=== PATIENT | female | born 1985 | race Caucasian/White ===

== ENCOUNTER 2018-06-13 15:14 | Emergency (ER) | payer SELFPAY ==
[~2018-06-13] VITALS: Ht 157.5 cm; Wt 59.9 kg
[2018-06-13 15:31] VITALS: BP 131/87
--- NOTE | 2018-06-13 15:36 | NUR ---
patient to lobby with steady gait. awaiting available room. nad.
--- NOTE | 2018-06-13 15:50 | NUR ---
PATIENT AMBULATED TO ER BED 5.
--- NOTE | 2018-06-13 16:00 | NUR ---
PATIENT PRESENTS TO ED WITH C/O PRODUCTIVE COUGH . PT STATES SHE HAS BEEN COUGHING FOR 2 MONTHS AND HAD GREEN PHLEGM FOR THE PAST 2 WEEKS. PATIENT REPORTS OF FEELING FATIGUED AND HAVING GENERALIZED PAIN . DENIES N/V/D; SKIN IS PINK/WARM/DRY; AAOX4 WITH EVEN AND STEADY GAIT; LUNGS CLEAR BL; HR EVEN AND REGULAR; PT DENIES ANY FEVER, CP, SOB, AT THIS TIME; PATIENT STATES PAIN OF 8/10 AT THIS TIME; VSS; PATIENT POSITIONED FOR COMFORT; HOB ELEVATED; BEDRAILS UP X2; BED DOWN. ER MD MADE AWARE OF PT STATUS.
[2018-06-13] MEDS ORDERED: ALBUTEROL 0.083% 2.5 MG/3 ML NEBU INH ONE (17:20)
[2018-06-13] MEDS ORDERED: IPRATROPIUM 0.02% 0.5 MG/2.5 ML NEBU INH ONE (17:20)
[2018-06-13] MEDS ORDERED: predniSONE 20 MG TAB PO ONE (17:20)
[2018-06-13 18:43] VITALS: BP 124/96
--- NOTE | 2018-06-13 18:43 | NUR ---
PATIENT DISCHARGED WITHOUT PAPERWORK. PATIENT LEFT DISCHARGE PAPERS AND PRESCRIPTIONS. CALLED PATIENT'S NUMBER. PT'S FAMILY MEMBER ANSWERED THE CALL. FAMILY MEMBER INTRUCTED TO HAVE THE PATIENT CALL BACK ER.
--- NOTE | 2018-06-13 18:43 | NUR ---
Note rizwanone in EDM - 06/13/18 at 1847 by AUSTIN Patient discharged with v/s stable. Written and verbal after care instructions given and explained. Patient alert, oriented and verbalized understanding of instructions. Ambulatory with steady gait. All questions addressed prior to discharge. ID band removed. Patient advised to follow up with PMD. Rx of GIO TORRES given. Patient educated on indication of medication including possible reaction and side effects. Opportunity to ask questions provided and answered.
== END 2018-06-13 18:43 | disposition home or self-care (01) ==
LOC: MED 15:14
DX: J40 Bronchitis, not specified as acute or chronic (principal); J98.01 Acute bronchospasm; F17.210 Nicotine dependence, cigarettes, uncomplicated
CPT/HCPCS: 71045; 94640; 99283; J7512; J7613; J7644

== ENCOUNTER 2018-08-23 17:22 | Inpatient (IN) | payer MEDICAID ==
[~2018-08-23] VITALS: Ht 157.5 cm; Wt 63.5 kg
[2018-08-23 17:32] VITALS: BP 148/103
--- NOTE | 2018-08-23 18:01 | NUR ---
C/O SOB AND SWELLING/REDNESS TO BILAT UPPER/LOWER EXTREMITIES X 1 MONTH,; SKIN IS WARM/DRY, AAOX4 WITH UNSTEADY GAIT; LUNGS CLEAR BL, LABORED BREATHING, TACHYPNEA NOTED AT 24 RESP. PER MINUTE; PT PLACED ON 15L NRB MASK, O2 SAT AT 95%, ELEVATED HOB. TACHYCARDIA AT 113, ERMD AWARE; PT DENIES ANY FEVER AT THIS TIME. PATIENT POSITIONED FOR COMFORT; HOB ELEVATED; BEDRAILS UP X2; BED DOWN. ER MD MADE AWARE OF PT STATUS.
--- NOTE | 2018-08-23 18:01 | NUR ---
Patient ambulated to bed 6 with family. RN evaluating patient at bedside.
--- NOTE | 2018-08-23 18:14 | NUR ---
Dr. Key evaluating patient at bedside.
--- NOTE | 2018-08-23 18:27 | NUR ---
UNABLE TO OBTAIN IV LINE, CHARGE NURSE KARELY WILL ATTEMPT
--- NOTE | 2018-08-23 19:05 | NUR ---
REPORT GIVEN TO ENRIQUE ARZATE
[2018-08-23 19:12] LABS: BASOPHILS # (AUTO) 0.1 K/uL (0.00-0.22); EOSINOPHILS # (AUTO) 0.1 K/uL (0-0.4); EOSINOPHILS % (AUTO) 0.9 % (0.0-4.0); HEMATOCRIT 45.2 % (36-48); HEMOGLOBIN 14.6 g/dL (12.0-16.0); LYMPHOCYTES % (AUTO) 25.9 % (20.5-51.1); MEAN CORPUSCULAR HEMOGLOBIN 26 pg (27-31); MEAN CORPUSCULAR HGB CONC 32 g/dL (33-37); MEAN CORPUSCULAR VOLUME 78.9 fL (80-94); MONOCYTES # (AUTO) 0.8 K/uL (0.8-1.0); MONOCYTES % (AUTO) 6.8 % (1.7-9.3); NEUTROPHILS # (AUTO) 7.7 K/uL (1.8-7.7); NEUTROPHILS % (AUTO) 65.4 % (42.2-75.2); PLATELET COUNT (AUTO) 380 K/uL (140-450); RED BLOOD CELL COUNT(AUTO) 5.73 MIL/uL (4.20-5.40); RED CELL DISTRIBUTION WIDTH 14.3 % (11.6-13.7); WHITE BLOOD COUNT (AUTO) 11.7 K/uL (4.8-10.8)
--- NOTE | 2018-08-23 19:30 | NUR ---
3 ATTEMPTS FOR IV START, L THUMB 22G SUCCESSFULL, FLUSHED WELL W/O RESISTANCE, NO REDNESS OR SWELLING TO SIGHT; CLEAR TRANSPARENTS DRESSING APPLIED PT TOLERATED WELL, PT STATES 0/10 PAIN TO SIGHT.
[2018-08-23 19:35] LABS: ANION GAP 15.1 (8-16); CARBON DIOXIDE 23.3 mmol/L (21-32); POTASSIUM 4.4 mmol/L (3.5-5.1)
[2018-08-23 19:38] LABS: PROTHROMBIN TIME 10.7 secs (10.8-13.4)
[2018-08-23 19:40] LABS: ALBUMIN 3.7 g/dL (3.4-5.0); TOTAL BILIRUBIN 1.2 mg/dL (0.0-1.0)
[2018-08-23] MEDS ORDERED: FUROSEMIDE 40 MG/4 ML VIAL IVP ONE (20:05)
[2018-08-23 20:08] LABS: BARBITURATE, URINE NEG. ng/ml (NEG <=200); BENZODIAZEPINE, URINE NEG. ng/mL (NEG <=200); CANNABINOID, URINE NEG. ng/mL (NEG <=50); COCAINE, URINE NEG. ng/mL (NEG <=300); OPIATE, URINE POS. ng/mL (NEG <=2000); PHENCYCLIDINE SCREEN,URINE NEG. ng/mL (NEG <=25)
[2018-08-23] MEDS ORDERED: DOCUSATE SODIUM 100 MG GELCAP PO PRN (20:15)
[2018-08-23] MEDS ORDERED: ACETAMINOPHEN 325 MG TAB PO PRN (20:15)
[2018-08-23] MEDS ORDERED: ONDANSETRON 4 MG/2 ML VIAL IM/IVP PRN (20:15)
[2018-08-23 20:33] LABS: APPEARANCE,URINE CLEAR (CLEAR); BILIRUBIN,URINE NEGATIVE (NEGATIVE); BLOOD, URINE NEGATIVE (NEGATIVE); COLOR,URINE YELLOW (YELLOW); LEUKOCYTE ESTERASE ,URINE TRACE (NEGATIVE); NITRITE, URINE NEGATIVE (NEGATIVE); UGLUCOSE NEGATIVE (NEGATIVE)
[2018-08-23 20:34] LABS: RBC,URINE 0 /HPF (0-5); WBC,URINE 0-5 /HPF (0-5)
[2018-08-23 20:58] LABS: CHOL/HDL RATIO 3.2 (1-4.5); FREE T4 (FREE THYROXINE) 1.09 ng/dL (0.76-1.46); MAGNESIUM 1.9 mg/dL (1.8-2.4); PHOSPHORUS 4.6 mg/dL (2.5-4.9); THYROID STIMULATING HORMONE 1.21 uIU/mL (0.34-3.74)
[2018-08-23 21:00] VITALS: BP 147/112
--- NOTE | 2018-08-23 21:00 | NUR ---
RECEIVED BEDSIDE REPORT FROM ENRIQUE LUCERO RN. PT IS AMBULATORY. AAO X4. ON NON REBREATHER MASK AT 15L. RESPIRATIONS ARE LABORED. HAS FRANCISCA EDEMA. SENSATION INTACT CAP REFILL <2. SKIN INTACT. IV ON LEFT THUMB 24G. VS: 147/112 HR 111 99% ON 15L RR 22. PLAN OF CARE DISCUSSED WITH PT AND FAMILY. DR TO SEE PT. MRSA SWAB OBTAINED. CALL LIGHT WITHIN REACH.
--- NOTE | 2018-08-23 21:00 | NUR ---
Patient will be admitted to care of [facility]. Admited to TELE. Will go to room 119B. Belongings list completed. Report to JAZMYNE ARZATE.
--- NOTE | 2018-08-23 21:20 | NUR ---
DR BRUSH IN ROOM WITH PT. PT IN STABLE CONDITION. CALL LIGHT WITHIN REACH.
[2018-08-23] MEDS: NACL 0.9% 1,000 ML IV SCH (21:39)
[2018-08-23] MEDS ORDERED: ALUMINUM HYD/MAG/SIMETHICONE 30 ML UDC PO PRN (22:05)
[2018-08-23] MEDS: HYDROcodone/APAP 7.5/325 MG 1 TAB PO PRN (22:34)
[2018-08-23] MEDS ORDERED: traZODone 50 MG TAB PO SCH (23:00)
--- NOTE | 2018-08-23 23:33 | NUR ---
RT IN TO SEE PT. PT KEEPS TAKING OFF NON REBREATHER MASK. O2 SAT 87% ON RA. RT EDUCATED PT ON IMPORTANCE OF KEEPING O2 SAT UP. PT VERBALIZED UNDERSTANDING. CALL LIGHT WITHIN REACH. WILL CONTINUE TO MONITOR.
--- NOTE | 2018-08-23 23:35 | NUR ---
ADVISED PATIENT THAT DUE TO CURRENT PHYSICAL CONDITION THAT HER BODY IS NOT RECEIVING ENOUGH OXYGEN AND THAT THE OXYGEN DEVICES ARE NOT FIT TO PATIENTS COMFORT THAT THEY ARE FIT TO PATIENTS NEED. SPO2 ON NONREBREATHER MAINTAINS 91-92%. ADVISED PATIENT THAT FLUIDS DRAW OUT THAT HER OXYGEN WILL IMPROVE AND A DIFFERENT DEVICE CAN BE USED. PT UNDERSTANDS AND SAID SHE WILL COMPLY.
[2018-08-24] VITALS: BP 127/96
--- NOTE | 2018-08-24 00:44 | NUR ---
PT SLEEPING COMFORTABLY IN BED. NO S/S OF DISTRESS. RESPIRATIONS ARE EQUAL AND UNLABORED. PT REMAINS WITH NON REBREATHER MASK ON. CALL LIGHT WITHIN REACH.
--- NOTE | 2018-08-24 02:04 | NUR ---
ASSESSED PATIENT WHO WAS ASLEEP BUT WOKE. STATED THAT HER BREATHING FEELS BETTER THAT SHE IS NOT WORKING HARD. RESPIRATORY RATE 22 BUT APPEARED LESS LABORED TO WHEN SHE CAME IN TO ER. PLACED PATIENT ONTO 10 L/M OXYMIZER, SPO2 MAINTAINED AT 92%. ADVISED RN AND WILL CONTINUE TO MONITOR.
--- NOTE | 2018-08-24 03:50 | NUR ---
VITAL SIGNS ARE WITHIN NORMAL LIMITS. ALL NEEDS MET AT THIS TIME. CALL LIGHT WITHIN REACH. WILL CONTINUE TO MONITOR.
[2018-08-24 04:00] VITALS: BP 131/95
--- NOTE | 2018-08-24 04:03 | NUR ---
SPOKE WITH PTS AUNT ALEC. WERE WORRIED. UPDATED HER ABOUT HER CONDITION. SHE IS STABLE. ON OXYGEN NO MORE SOB. INFORMED CANNOT GIVE TOO MUCH INFO THROUGH PHONE. SHE WILL COME IN TO SEE PT. IN MORNING.
[2018-08-24] MEDS: HYDROcodone/APAP 7.5/325 MG 1 TAB PO PRN ×3 (05:39→15:15)
[2018-08-24] MEDS: LORazepam 2 MG/ML VIAL IVP PRN ×3 (06:45→20:54)
[2018-08-24] MEDS: ALBUTEROL SULFATE/IPRATROPIU 3 ML SOL IH SCH ×3 (07:10→21:02)
--- NOTE | 2018-08-24 07:29 | NUR ---
GAVE BEDSIDE REPORT TO GEOVANY RN. PT ENDORSED IN STABLE CONDITION.
--- NOTE | 2018-08-24 07:30 | NUR ---
RECEIVED BEDSIDE REPORT FROM TAKER OFF BRAKER MACHINE HUEY SAMANO AT BEDSIDE FOR CONTINUITY OF CARE. PT IS AMBULATORY. AAO X4. ON OXYMIZER 5L O2. RESPIRATIONS EVEN AND UNLABORED, PT HAS BLE EDEMA. SKIN INTACT. IV ON LEFT THUMB 24G, INFUSING IVF WELL. PLAN OF CARE DISCUSSED WITH PT, SHE VERBALIZED UNDERSTANDING. UPDATED BOARD. SAFETY PRECAUTIONS IN PLACE, CALL LIGHT WIHTIN REACH, WILL CONTINUE TO MONITOR PATIENT.
--- NOTE | 2018-08-24 07:45 | NUR ---
RECEIVED CALL FROM LAURYN SECURITY ESCORT ABOUT CT ANGIOGRAM. PATIENT DOES NOT HAVE ACCESS FOR CT ANGIO. IV WILL BE ATTEMPTED, INFORM LAURYN THAT SHE WILL BE UDPATED. WILL CONTINUE TO MONITOR PATIENT.
[2018-08-24 07:47] LABS: BASOPHILS # (AUTO) 0.1 K/uL (0.00-0.22); BASOPHILS % (AUTO) 0.9 % (0.0-2.0); EOSINOPHILS # (AUTO) 0.1 K/uL (0-0.4); EOSINOPHILS % (AUTO) 1.1 % (0.0-4.0); HEMATOCRIT 41.8 % (36-48); HEMOGLOBIN 13.4 g/dL (12.0-16.0); LYMPHOCYTES # (AUTO) 3.1 K/uL (2.5-16.5); LYMPHOCYTES % (AUTO) 27.6 % (20.5-51.1); MEAN CORPUSCULAR HEMOGLOBIN 25 pg (27-31); MEAN CORPUSCULAR HGB CONC 32 g/dL (33-37); MEAN CORPUSCULAR VOLUME 79.1 fL (80-94); MONOCYTES # (AUTO) 0.6 K/uL (0.8-1.0); MONOCYTES % (AUTO) 5.7 % (1.7-9.3); NEUTROPHILS # (AUTO) 7.2 K/uL (1.8-7.7); NEUTROPHILS % (AUTO) 64.7 % (42.2-75.2); PLATELET COUNT (AUTO) 336 K/uL (140-450); RED BLOOD CELL COUNT(AUTO) 5.28 MIL/uL (4.20-5.40); RED CELL DISTRIBUTION WIDTH 14.2 % (11.6-13.7); WHITE BLOOD COUNT (AUTO) 11.2 K/uL (4.8-10.8)
[2018-08-24 07:52] LABS: ANION GAP 18.3 (8-16); CARBON DIOXIDE 19.2 mmol/L (21-32); CREATININE 1.1 mg/dL (0.6-1.3); POTASSIUM 3.5 mmol/L (3.5-5.1)
[2018-08-24 08:00] VITALS: BP 133/87
--- NOTE | 2018-08-24 08:11 | NUR ---
PATIENT HAS BEEN SCREENED AND CATEGORIZED MODERATE NUTRITION RISK. PATIENT WILL BE SEEN WITHIN 3-5 DAYS OF ADMISSION. 08/25/18MAEGAN WILDE RD
[2018-08-24] MEDS: FUROSEMIDE 40 MG/4 ML VIAL IVP SCH (09:06)
[2018-08-24] MEDS: AMOXICILLIN 500 MG CAP PO SCH ×2 (09:06→20:51)
[2018-08-24] MEDS: LACTOBACILLUS RHAMNOSUS GG 1 EACH CAP PO SCH (09:06)
--- NOTE | 2018-08-24 09:06 | NUR ---
ORDERD MEDICATIONS GIVEN. PATIENT TOLERATED THEM WELL. NO SIGNS OF COMPLAINTS AT THIS TIME. INFORMED HER OF PLAN CT ANGIO, CONSENT REQUESTED, PATIENT STATED THAT SHE WILL SIGN, BUT SHE WANTED TO REST FOR THE MOMENT. RN VERBALIZED UNDERSTANDING. WILL CONTINUE TO MONITOR PATIENT.
[2018-08-24] MEDS ORDERED: ALBUTEROL SULFATE/IPRATROPIU 3 ML SOL IH PRN (09:50)
[2018-08-24] MEDS ORDERED: hePARIN / DEXT 5% PREMIX 250 ML IV SCH (10:45)
[2018-08-24] MEDS ORDERED: HEPARIN PER PHARMACY MC PRN (10:45)
[2018-08-24 12:00] VITALS: BP 115/85
--- NOTE | 2018-08-24 12:05 | NUR ---
VS WNL EXCEPT FOR ST OF 107. PATIENT RESTING IN BED, FAMILY AT BEDSIDE. PATIENT AGREEABLE TO IV ATTEMPT FOR CT ANTIO. WILL CONTINUE TO MONITOR PATIENT.
--- NOTE | 2018-08-24 14:22 | NUR ---
CALLED LAURYN FROM CT, IV IN, CONSENT OBTAINED, PATIENT NOP SINCE 1240. CT ANGIO PLANNED FOR 8030-0902. PATIENT AWARE OF PLAN AND AGREABLE. WILL OCNITNUE TO MONITOR PATENT.
[2018-08-24] MEDS: hePARIN / DEXT 5% PREMIX 250 ML IV SCH (14:53)
--- NOTE | 2018-08-24 14:53 | NUR ---
PATIENT REQUESTED ATIVAN FOR ANXIETY, PRN ATIVAN GIVEN. HEPARIN DRIP STARTED, PATIENT GIVEN BOLUS AND RATE STARTED AT 670 UNIT/HR ACCORDING TO PROTOCOL. PATIENT TOLERATING IT WELL. WILL CONTINUE TO MONITOR PATIENT.
[2018-08-24] MEDS ORDERED: NICOTINE TRANSD SYS 14 MG/24 HR PATCH TD SCH (15:07)
--- NOTE | 2018-08-24 15:15 | NUR ---
PATIENT C/O ABD PAIN, REQUESTED NORCO PRN. NORCO GIVEN. PATIENT TOLERATING IT WELL. PATIENT NOW SETTLED IN BED RESTING, NO COMPLAINTS AT THIS TIME. FAMILY AT BEDSIDE. SAFETY PRECAUTIONS IN PLACE, CALL LIGHT WITHIN REACH, WILL CONTINUE TO MONITOR PATIENT.
[2018-08-24 16:00] VITALS: BP 114/79
[2018-08-24] MEDS ORDERED: DIPHENOXYLATE /ATROPINE 2.5 MG TAB PO PRN (16:00)
[2018-08-24] MEDS ORDERED: cloNIDine 0.1 MG TAB PO PRN (16:12)
--- NOTE | 2018-08-24 18:45 | NUR ---
PATIENT'S MOTHER IN LAW IN TO SEE PATIENT. UPDATED HER WITH PATIENT'S STATUS. PATIENT STILL HAS NOT RECEIVED CT ANGIO. WILL ENDORSE TO COUNSELOR/ART THERAPIST RN TO FOLLOW UP. PATIENT RESTING, NO COMPLAINTS AT THIS TIME.
--- NOTE | 2018-08-24 19:29 | NUR ---
REPORT GIVEN TO FLAKE OR SHRED ROLL OPERATOR RN AT BEDSIDE FOR CONTINUITY OF CARE. ENDORSED CT ANGIO FOR PM RN TO FOLLOW UP ON. PATIENT IN STABLE CONDITION.
--- NOTE | 2018-08-24 19:30 | NUR ---
RECEIVED BEDSIDE REPORT FROM GEOVANY RN. PT IS AMBULATORY. AAO X4. ON OXIMIZER 4L. RESPIRATIONS ARE EQUAL AND UNLABORED. HAS FRANCISCA EDEMA. SENSATION INTACT CAP REFILL <2. SKIN INTACT. IV ON LEFT THUMB 24G ON HEPARIN DRIP 670U BEGAN AT 1453 NEW APPT DRAW AT 0. IV ON R FA 20G SL FOR CT ANGIO TODAY. PLAN OF CARE DISCUSSED WITH PT AND FAMILY CALL LIGHT WITHIN REACH.
[2018-08-24 20:00] VITALS: BP 114/76
[2018-08-24] MEDS: NACL 0.9% 1,000 ML IV SCH (20:40)
--- NOTE | 2018-08-24 20:51 | NUR ---
DR KAPADIA IN PT ROOM. EXPLAINED HER CONDITION AND ANSWERED ALL QUESTIONS. AFTER SPEAKING WITH THE PT BECAME ANXIOUS. ADMINISTERED DUE MEDICATION AND ATIVAN. CALL LIGHT IS WITHIN REACH. WILL CONTINUE TO MONITOR.
[2018-08-24] MEDS ORDERED: cloNIDine 0.1 MG TAB PO SCH (21:00)
--- NOTE | 2018-08-24 21:15 | NUR ---
PT WAS SHORT OF BREATH BECAUSE SHE JUST WALKED TO THE BATHROOM WITHOUT HER O2. OXIMIZER FOUND AT 5LMP, TURNED BACK TO 10LPM SPO2 NOW 93%.
--- NOTE | 2018-08-24 21:49 | NUR ---
APTT 56.6H IN THERAPEUTIC RANGE. NO CHANGE IN HEPARIN RATE. NEW APTT DRAW AT 0315. WILL CONTINUE TO MONITOR.
[2018-08-25] VITALS: BP 112/86
--- NOTE | 2018-08-25 | NUR ---
VITAL SIGNS ARE STABLE HR 111 AND O2 SAT 92% 10L. PT SLEEPING AND LETHARGIC. ROUSED BUT CLOSES EYES AGAIN. RESPIRATIONS ARE EQUAL AND UNLABORED. WILL CONTINUE TO MONITOR.
[2018-08-25] MEDS: HYDROcodone/APAP 7.5/325 MG 1 TAB PO PRN ×3 (02:06→18:10)
--- NOTE | 2018-08-25 02:49 | NUR ---
PT RESTING COMFORTABLY IN BED. RESPIRATIONS ARE EQUAL AND UNLABORED. REMAINS ON OXIMIZER. CALL LIGHT WITHIN REACH. WILL CONTINUE TO MONITOR.
[2018-08-25 03:27] LABS: BASOPHILS # (AUTO) 0.2 K/uL (0.00-0.22); BASOPHILS % (AUTO) 1.7 % (0.0-2.0); EOSINOPHILS # (AUTO) 0.2 K/uL (0-0.4); EOSINOPHILS % (AUTO) 1.5 % (0.0-4.0); HEMATOCRIT 42.5 % (36-48); HEMOGLOBIN 13.6 g/dL (12.0-16.0); LYMPHOCYTES # (AUTO) 2.1 K/uL (2.5-16.5); LYMPHOCYTES % (AUTO) 16.7 % (20.5-51.1); MEAN CORPUSCULAR HEMOGLOBIN 25 pg (27-31); MEAN CORPUSCULAR HGB CONC 32 g/dL (33-37); MEAN CORPUSCULAR VOLUME 77.9 fL (80-94); MONOCYTES # (AUTO) 0.7 K/uL (0.8-1.0); MONOCYTES % (AUTO) 5.7 % (1.7-9.3); NEUTROPHILS # (AUTO) 9.4 K/uL (1.8-7.7); NEUTROPHILS % (AUTO) 74.4 % (42.2-75.2); PLATELET COUNT (AUTO) 331 K/uL (140-450); RED BLOOD CELL COUNT(AUTO) 5.46 MIL/uL (4.20-5.40); RED CELL DISTRIBUTION WIDTH 14.3 % (11.6-13.7); WHITE BLOOD COUNT (AUTO) 12.6 K/uL (4.8-10.8)
[2018-08-25 03:57] LABS: CARBON DIOXIDE 24.1 mmol/L (21-32); CREATININE 1.2 mg/dL (0.6-1.3); POTASSIUM 4.1 mmol/L (3.5-5.1)
[2018-08-25 04:00] VITALS: BP 127/84
--- NOTE | 2018-08-25 04:53 | NUR ---
APPT 44.1H GAVE HEPARIN BOLUS OF 1600 AND INCREASE RATE TO 770U/H PER PROTOCOL. NEW PTT DRAW AT 1050. NO S/S OF DISTRESS. CALL LIGHT WITHIN REACH.
[2018-08-25] MEDS: hePARIN / DEXT 5% PREMIX 250 ML IV SCH ×3 (04:56→23:36)
--- NOTE | 2018-08-25 05:50 | NUR ---
ATTEMPTED TO START A 20G IV FOR CT WITH CONTRAST UNABLE TO START IV CHARGE NURSE AND BUNCH BREAKER ATTEMPTED. WILL MAKE DR AWARE. NO S/S OF DISTRESS. CALL LIGHT WITHIN REACH.
--- NOTE | 2018-08-25 07:17 | NUR ---
GAVE BEDSIDE REPORT TO FELICIANO ARZATE. PT ENDORSED IN STABLE CONDITION.
[2018-08-25] MEDS: ALBUTEROL SULFATE/IPRATROPIU 3 ML SOL IH SCH ×3 (07:34→19:07)
--- NOTE | 2018-08-25 07:34 | NUR ---
PATIENT SELF REMOVED SUPPLEMENTAL OXYGEN VIA OXYMIZER ROOM SATURATION 88% ON ROOM AIR POST HHN ANN PLACED ON HUMIDIFIED SUPPLEMENTAL OXYGEN AT 3 LPM NC NIBBLER OPERATOR TO MONITOR AND ADVISE RN DAYS Addendum: 08/25/18 at 0917 by Tacos Hogue RT FELICIANO/HUEY NOTIFIED OF OXYGEN DEVICE AND LPM CHANGE
--- NOTE | 2018-08-25 07:35 | NUR ---
RECEIVED REPORT FROM AUDIO/VISUAL OPERATOR NURSE. PATIENT LYING DOWN IN BED SLEEPING, AROUSABLE BY VOICE. NO DISTRESS NOTED. AAOX4, CALM, COOPERATIVE, SKIN COLOR APPROPRIATE TO ETHNICITY, WARM TO TOUCH. SKIN INTACT. RESPIRATIONS EVEN, UNLABORED, ON O2 3L/MIN VIA NC WITH O2 SAT AT 94%. IV SITE INTACT, PATENT, AND INFUSING HEPARIN DRIP PER MD ORDERS. BUE AND BLE +1 PITTING EDEMA NOTED. ABDOMEN SOFT. REVIEWED PLAN OF CARE WITH PATIENT. PATIENT VERBALIZED UNDERSTANDING. SAFETY MEASURES IN PLACE, CALL LIGHT WITHIN REACH. WILL CONTINUE TO MONITOR.
[2018-08-25 08:00] VITALS: BP 120/96
--- NOTE | 2018-08-25 09:14 | NUR ---
SATURATION 90%ON HUMIDIFIED SUPPLEMENTAL OXYGEN AT 3 LPM VIA NC INCREAES TO 4 LPM FELICIANO/RN NOTIFIED
--- NOTE | 2018-08-25 09:30 | NUR ---
PATIENT LYING DOWN IN BED SLEEPING, AROUSABLE BY VOICE. NO DISTRESS NOTED. WILL CONTINUE TO MONITOR.
[2018-08-25] MEDS: AMOXICILLIN 500 MG CAP PO SCH ×2 (09:53→20:54)
[2018-08-25] MEDS: FUROSEMIDE 40 MG/4 ML VIAL IVP SCH (09:53)
[2018-08-25] MEDS: LACTOBACILLUS RHAMNOSUS GG 1 EACH CAP PO SCH (09:53)
[2018-08-25] MEDS: PANTOPRAZOLE 40 MG INJ VIAL IVP SCH (09:53)
[2018-08-25] MEDS: NICOTINE TRANSD SYS 14 MG/24 HR PATCH TD SCH (09:56)
--- NOTE | 2018-08-25 10:10 | NUR ---
PHYSICAL THERAPIST WORKING WITH PATIENT. PATIENT ABLE TO AMBULATE AT [facility] WITHOUT WALKER. SCHEDULED MEDICATIONS DUE GIVEN. WILL CONTINUE TO MONITOR.
--- NOTE | 2018-08-25 10:39 | NUR ---
RECEIVED ORDER FOR [facility] . CALLED [facility], AND SPOKE WITH KRISTY. SHE SAID TO FAX FACE SHEET, ORDER, CLINICALS, H&P, ETC TO HER AT [phone], WHICH I DID. THE PERSON TO CONTACT WILL BE MERI, .
--- NOTE | 2018-08-25 11:42 | NUR ---
PATIENT SITTING IN BED TALKING ON THE PHONE. NO DISTRESS NOTED. DENIES ANY PAIN. WILL CONTINUE OT MONITOR.
[2018-08-25 12:00] VITALS: BP 107/74
--- NOTE | 2018-08-25 12:00 | NUR ---
PTT RESULT CAME BACK. NO CHANGED NEEDED REQUIRED ON HEPARIN DRIP CHANGE. FOLLOW-UP PTT SCHEDULED AT 1800 LATER TODAY PER PROTOCOL. WILL CONTINUE TO MONITOR.
--- NOTE | 2018-08-25 12:10 | NUR ---
PATIENT COMPLAINS OF PAIN, NORCO GIVEN. NO DISTRESS NOTED. SAFETY MEASURES IN PLACE, CALL LIGHT WITHIN REACH. WILL CONTINUE TO MONITOR.
[2018-08-25] MEDS ORDERED: MELATONIN 3 MG TAB PO PRN (13:00)
--- NOTE | 2018-08-25 14:08 | NUR ---
CALLED MERI FROM [employer] [facility], . HE SAID HE WOULD BE COMING IN TODAY AND ASKED ME TO GIVE HIM A COPY OF THE INFORMATION.
--- NOTE | 2018-08-25 14:10 | NUR ---
RECEIVED ORDER FOR REFERRAL TO [facility]. I CALLED [facility] POWERTRAIN CONTROL SYSTEMS ENGINEER, I SPOKE WITH EL, SHE SAID TO FAX INFORMATION AND ORDER TO HER AT [facility], FAX [phone]. INFORMED HER ECHO WAS NOT READ, AND I DIDN'T HAVE THE UTILIZATION SUPERVISOR NOTES YET. SHE SAID THAT [facility] WOULD CONTACT THE PATIENT.
--- NOTE | 2018-08-25 14:52 | NUR ---
ABHIJEET FROM [employer] ON UNIT TO TALK TO PATIENT REGARDING [facility]. PER ABHIJEET, A RN STAFFING WILL COME BACK OUT AND PERFORM EDUCATION ON VEST ONCE APPROVED BY INSURANCE. WILL CONTINUE TO MONITOR.
--- NOTE | 2018-08-25 15:33 | NUR ---
Riveter Helper Note: I met with patient at bedside. She stated she is not planning to use illicit drugs anymore. I provided her with a list of alcohol/substance abuse treatment programs. She accepted resources and thanked me.
--- NOTE | 2018-08-25 15:48 | NUR ---
PER REQUEST OF MERI FROM [facility], SW NOTE FAXED TO HIM AT [phone]. PER MERI AT [facility], STILL NEEDS CONTRACT SPECIALIST CONSULT, NOTE AND ECHO RESULTS FAXED TO [facility] AT [phone]. ALSO CONTRACT SPECIALIST CONSULT, NOTE AND ECHO NEEDS TO BE FAXED TO [facility], FAX [phone] INFORMED FELICIANO YAN RN.
[2018-08-25 16:00] VITALS: BP 105/72
--- NOTE | 2018-08-25 16:30 | NUR ---
PATIENT LYING DOWN IN BED SLEEPING, AROUSABLE BY VOICE. NO DISTRESS NOTED. CONDITION UNCHANGED. WILL CONTINUE TO MONITOR.
--- NOTE | 2018-08-25 18:11 | NUR ---
PATIENT COMPLAINS OF PAIN, NORCO GIVEN. WILL CONTINUE TO MONITOR.
--- NOTE | 2018-08-25 19:25 | NUR ---
GAVE REPORT TO FINGERNAIL FORMER NURSE FOR CONTINUITY OF CARE. PATIENT IN STABLE CONDITION.
--- NOTE | 2018-08-25 19:30 | NUR ---
RECEIVED BEDSIDE REPORT FROM RN FELICIANO, PATIENT IN BED, ON 2 L NC, LUNG SOUNDS DIMINISHED, IV IN RIGHT WRIST 20G SL, IV IN LEFT THUMB 22 G INFUSING HEPARIN AT 7.7 ML/HR. NOTED +1 EDEMA IN LOWER EXTREMITIES. EXPLAINED PLAN OF CARE, FAMILIES QUESTIONS ANSWERED WILL CONTINUE TO MONITOR.
[2018-08-25 20:00] VITALS: BP 128/76
--- NOTE | 2018-08-25 20:05 | NUR ---
PATIENT C/O INSOMNIA MEDICATED WITH MELATONIN
[2018-08-25] MEDS: NACL 0.9% 1,000 ML IV SCH (20:44)
[2018-08-25] MEDS: LORazepam 2 MG/ML VIAL IVP PRN (20:54)
--- NOTE | 2018-08-25 20:54 | NUR ---
PATIENT C/O ANXIETY GAVE ATIVAN
--- NOTE | 2018-08-25 21:26 | NUR ---
APTT 34.8, GAVE BOLUS WITH 3300 UNITS AND INCREASED DRIP TO 9.7 ML/HR ACCORDING TO MD ORDERS.
--- NOTE | 2018-08-25 23:38 | NUR ---
CHANGED HEPARIN BAG, INFUSING AT 9.7 ML/HR.
[2018-08-26] VITALS: BP 125/70
--- NOTE | 2018-08-26 02:00 | NUR ---
PATIENT SLEEPING WILL CONTINUE TO MONITOR
[2018-08-26 04:00] VITALS: BP 120/70
--- NOTE | 2018-08-26 04:10 | NUR ---
CALL FROM LAB APTT 51.2 NO CHANGE IN RATE.
--- NOTE | 2018-08-26 06:00 | NUR ---
PATIENT SLEEPING IN BED
--- NOTE | 2018-08-26 07:30 | NUR ---
ENDORSED PATIENT TO DAY SHIFT NURSE, PATIENT STABLE.
--- NOTE | 2018-08-26 07:31 | NUR ---
RECEIVED REPORT FROM MEDICAL VOUCHER CLERK NURSE SUMMER. PT IN STABLE CONDITION. RESPIRATIONS EVEN AND UNLABORED. IV INTACT AND PATENT. SAFETY MEASURES IN PLACE. BED IN LOW POSITION. CALL LIGHT AT BEDSIDE. WILL CONTINUE TO MONITOR
[2018-08-26 07:34] LABS: CARBON DIOXIDE 26.1 mmol/L (21-32); POTASSIUM 4.1 mmol/L (3.5-5.1)
[2018-08-26 07:40] LABS: BASOPHILS # (AUTO) 0.1 K/uL (0.00-0.22); BASOPHILS % (AUTO) 1.2 % (0.0-2.0); EOSINOPHILS # (AUTO) 0.2 K/uL (0-0.4); EOSINOPHILS % (AUTO) 1.8 % (0.0-4.0); HEMATOCRIT 43.2 % (36-48); HEMOGLOBIN 14.1 g/dL (12.0-16.0); LYMPHOCYTES # (AUTO) 2.9 K/uL (2.5-16.5); LYMPHOCYTES % (AUTO) 25.9 % (20.5-51.1); MAGNESIUM 2.1 mg/dL (1.8-2.4); MEAN CORPUSCULAR HEMOGLOBIN 25 pg (27-31); MEAN CORPUSCULAR HGB CONC 33 g/dL (33-37); MEAN CORPUSCULAR VOLUME 77.7 fL (80-94); MONOCYTES # (AUTO) 0.9 K/uL (0.8-1.0); MONOCYTES % (AUTO) 7.9 % (1.7-9.3); NEUTROPHILS % (AUTO) 63.2 % (42.2-75.2); PHOSPHORUS 4.1 mg/dL (2.5-4.9); PLATELET COUNT (AUTO) 357 K/uL (140-450); RED BLOOD CELL COUNT(AUTO) 5.56 MIL/uL (4.20-5.40); RED CELL DISTRIBUTION WIDTH 14.3 % (11.6-13.7); WHITE BLOOD COUNT (AUTO) 11.1 K/uL (4.8-10.8)
[2018-08-26] MEDS: ALBUTEROL SULFATE/IPRATROPIU 3 ML SOL IH SCH ×3 (07:40→19:26)
[2018-08-26 08:00] VITALS: BP 123/85
--- NOTE | 2018-08-26 09:32 | NUR ---
GAVE ORDERED DUE MEDICATIONS. PT TOLERATED WELL. WILL CONTINUE TO MONITOR. BED IN LOW POSITION. CALL LIGHT AT BEDSIDE.
[2018-08-26] MEDS: LACTOBACILLUS RHAMNOSUS GG 1 EACH CAP PO SCH (09:50)
[2018-08-26] MEDS: AMOXICILLIN 500 MG CAP PO SCH ×2 (09:50→20:12)
[2018-08-26] MEDS: HYDROcodone/APAP 7.5/325 MG 1 TAB PO PRN (09:50)
[2018-08-26] MEDS: FUROSEMIDE 40 MG/4 ML VIAL IVP SCH (09:51)
[2018-08-26] MEDS: PANTOPRAZOLE 40 MG INJ VIAL IVP SCH (09:51)
[2018-08-26] MEDS: NICOTINE TRANSD SYS 14 MG/24 HR PATCH TD SCH (10:09)
[2018-08-26 12:00] VITALS: BP 121/74
--- NOTE | 2018-08-26 13:50 | NUR ---
PATIENT REMOVED SUPPLEMENTAL OXYGEN VIA NC PLACED ON TOP OF HEAD WHILE SPEAKING TO CHILD VIA CELL PHONE REITERATED TO PATINE OF KEEPING SUPPLEMENTAL OXYGEN IN USE PATIENT STATES "OK" POST HHN THERAPY PLACED BACK ON HUMIDIFIED SUPPLEMENTAL OXYGEN AT 4 LPM VIA NC
--- NOTE | 2018-08-26 13:58 | NUR ---
CALLED CLINICAL EDUCATION SPECIALIST TO INQUIRE ABOUT HOME O2 AND [facility]. NO ANSWER LEFT MESSAGE ON ANSWERING MACHINE.
--- NOTE | 2018-08-26 14:15 | NUR ---
PT HAD A SLURPEE BROUGHT IN BY A FRIEND, PT AWARE OF 1.5L DAILY.
--- NOTE | 2018-08-26 14:25 | NUR ---
PT IN SHOWER AT THIS TIME. O2 TANK ON STAND. O2 4L VIA NC. PT IN STABLE CONDITION.
[2018-08-26] MEDS: LORazepam 2 MG/ML VIAL IVP PRN (15:18)
[2018-08-26 16:00] VITALS: BP 120/84
--- NOTE | 2018-08-26 17:00 | NUR ---
GAVE ORDERED DUE MEDICATION AT THIS TIME. PT TOLERATED WELL. WILL CONTINUE TO MONITOR. BED IN LOW POSITION. CALL LIGHT AT BEDSIDE.
[2018-08-26] MEDS: busPIRone 5 MG TAB PO SCH (17:11)
--- NOTE | 2018-08-26 19:10 | NUR ---
GAVE REPORT TO SHIP KEEPER NURSE [facility] FOR CONTINUITY OF CARE. PT IN STABLE CONDITION.
--- NOTE | 2018-08-26 19:30 | NUR ---
RECEIVED BEDSIDE REPORT FROM HUEY MONCADA, PATIENT IN BED, ON 4 L NC, LUNG SOUNDS DIMINISHED, IV IN RIGHT WRIST 20G SL, IV IN LEFT THUMB 22 G INFUSING HEPARIN AT 9.7 ML/HR. NOTED +1 EDEMA IN LOWER EXTREMITIES, EDUCATION PROVIDED REGARDING FLUID RESTRICTION. EXPLAINED PLAN OF CARE, FAMILIES QUESTIONS ANSWERED WILL CONTINUE TO MONITOR.
[2018-08-26 20:00] VITALS: BP 113/80
[2018-08-26] MEDS: CITALOPRAM 20 MG TAB PO SCH (20:12)
[2018-08-26] MEDS: NACL 0.9% 1,000 ML IV SCH (20:14)
[2018-08-26] MEDS ORDERED: traZODone 50 MG TAB PO SCH (21:00)
--- NOTE | 2018-08-26 21:40 | NUR ---
PATIENT AMBULATED TO RESTROOM NEED ONE PERSON ASSIST
--- NOTE | 2018-08-26 22:50 | NUR ---
DUE MEDICATIONS GIVEN
[2018-08-27] VITALS: BP 125/77
--- NOTE | 2018-08-27 | NUR ---
V/S TAKEN ALL WITHIN BASELINE
[2018-08-27] MEDS: LORazepam 2 MG/ML VIAL IVP PRN ×3 (01:25→20:23)
--- NOTE | 2018-08-27 01:25 | NUR ---
PATIENT C/O ANXIETY MEDICATED WITH ATIVAN.
[2018-08-27 04:00] VITALS: BP 118/70
--- NOTE | 2018-08-27 04:00 | NUR ---
V/S TAKEN, NO SIGNS OF DISTRESS
--- NOTE | 2018-08-27 06:20 | NUR ---
ASSISTED PATIENT TO RESTROOM, NEEDS ONE PERSON ASSIST.
--- NOTE | 2018-08-27 07:17 | NUR ---
ENDORSED PATIENT TO DAY SHIFT NURSE, PATIENT STABLE.
--- NOTE | 2018-08-27 07:18 | NUR ---
RECEIVED REPORT FROM SERGING MACHINE OPERATOR AUTOMATIC NURSE. PT IN STABLE CONDITION. RESPIRATIONS EVEN AND UNLABORED. IV INTACT AND PATENT. O2 4L NC INTACT AND PATENT. SAFETY MEASURES IN PLACE. BED IN LOW POSITION. BED ALARM ON. CALL LIGHT AT BEDSIDE. WILL CONTINUE TO MONITOR.
[2018-08-27] MEDS: ALBUTEROL SULFATE/IPRATROPIU 3 ML SOL IH SCH ×3 (07:21→19:37)
--- NOTE | 2018-08-27 07:21 | NUR ---
PATIENT NON COMPLIANT WITH HUMIDIFIED SUPPLEMENTAL OXYGEN VIA NC PATIENT ON ROOM AIR SATURATION 89%-90% POST HHN THERAPY PLACED BACK ON HUMIDIFIED SUPPLEMENTAL OXYGEN AT 2 LPM VIA NC AT 2 LPM ANTWAN/RN NOTIFIED
[2018-08-27 07:38] LABS: ANION GAP 16.4 (8-16); CARBON DIOXIDE 24.8 mmol/L (21-32); CREATININE 0.8 mg/dL (0.6-1.3); POTASSIUM 4.2 mmol/L (3.5-5.1)
[2018-08-27 08:00] VITALS: BP 109/74
[2018-08-27 08:12] LABS: BASOPHILS # (AUTO) 0.1 K/uL (0.00-0.22); BASOPHILS % (AUTO) 1.1 % (0.0-2.0); EOSINOPHILS # (AUTO) 0.2 K/uL (0-0.4); HEMATOCRIT 43.7 % (36-48); HEMOGLOBIN 14.1 g/dL (12.0-16.0); LYMPHOCYTES % (AUTO) 33.7 % (20.5-51.1); MEAN CORPUSCULAR HEMOGLOBIN 25 pg (27-31); MEAN CORPUSCULAR HGB CONC 32 g/dL (33-37); MEAN CORPUSCULAR VOLUME 77.5 fL (80-94); MONOCYTES # (AUTO) 0.7 K/uL (0.8-1.0); MONOCYTES % (AUTO) 8.3 % (1.7-9.3); NEUTROPHILS # (AUTO) 4.9 K/uL (1.8-7.7); NEUTROPHILS % (AUTO) 54.9 % (42.2-75.2); PLATELET COUNT (AUTO) 358 K/uL (140-450); RED BLOOD CELL COUNT(AUTO) 5.64 MIL/uL (4.20-5.40); RED CELL DISTRIBUTION WIDTH 14.3 % (11.6-13.7); WHITE BLOOD COUNT (AUTO) 8.8 K/uL (4.8-10.8)
--- NOTE | 2018-08-27 10:10 | NUR ---
PT IN STABLE CONDITION. FAMILY AT BEDSIDE. WILL CONTINUE TO MONITOR. BED IN LOW POSITION. CALL LIGHT AT BEDSIDE.
[2018-08-27] MEDS: PANTOPRAZOLE 40 MG INJ VIAL IVP SCH (10:41)
[2018-08-27] MEDS: AMOXICILLIN 500 MG CAP PO SCH ×2 (10:41→20:29)
[2018-08-27] MEDS: FUROSEMIDE 40 MG/4 ML VIAL IVP SCH (10:41)
[2018-08-27] MEDS: LACTOBACILLUS RHAMNOSUS GG 1 EACH CAP PO SCH (10:42)
[2018-08-27] MEDS: NICOTINE TRANSD SYS 14 MG/24 HR PATCH TD SCH (10:42)
[2018-08-27] MEDS: busPIRone 5 MG TAB PO SCH ×3 (10:42→17:00)
[2018-08-27 12:00] VITALS: BP 110/72
[2018-08-27] MEDS: hePARIN / DEXT 5% PREMIX 250 ML IV SCH (12:55)
[2018-08-27] MEDS ORDERED: FUROSEMIDE 20 MG TAB PO SCH (13:10)
--- NOTE | 2018-08-27 13:20 | NUR ---
TALKED TO JEFF IN PHARMACY PTT LEVELS WERE LOW AT 22.3. PER JEFF HEPARIN PROTOCOL RE-STARTED AT THIS TIME.
[2018-08-27] MEDS ORDERED: CARVEDILOL 3.125 MG TAB PO SCH (13:30)
[2018-08-27] MEDS ORDERED: LISINOPRIL 5 MG TAB PO SCH (13:30)
--- NOTE | 2018-08-27 13:33 | NUR ---
PATIENT AGAIN REMOVED SUPPLEMENTAL OXYGEN SATURATION 91% ROOM AIR RESIDENTIAL DRIVER TO MONITOR ANTWAN/RN NOTIFIED
[2018-08-27 16:00] VITALS: BP 117/86
[2018-08-27] MEDS: HYDROcodone/APAP 7.5/325 MG 1 TAB PO PRN (17:57)
--- NOTE | 2018-08-27 19:32 | NUR ---
REPORT GIVEN TO DIRECTOR SALES SUPPORT JASEN RN FOR CONTINUITY OF CARE. PT IS STABLE AT THIS TIME.
--- NOTE | 2018-08-27 19:38 | NUR ---
RECEIVED FROM AM RN IN BED SLEEPING. WOKE UP EASILY WHEN VITAL SIGNS TAKEN. VISITORS JUST GOT IN TO SEE HER. NO COMPLAINTS DONE AT THIS TIME. CALL LIGHT WITH IN REACH. CARE PLANS FOR THE NIGHT DISCUSSED WITH HER. ABLE TO VERBALIZE NEEDS WELL. REQUESTED FOR BLANCA. PROVIDED WITH ONE. TELEMETRY MONITORING.
[2018-08-27 19:50] VITALS: BP 120/83
[2018-08-27] MEDS: traZODone 50 MG TAB PO SCH (20:22)
[2018-08-27] MEDS: CITALOPRAM 20 MG TAB PO SCH (20:23)
[2018-08-27] MEDS: CARVEDILOL 3.125 MG TAB PO SCH (20:23)
[2018-08-27] MEDS: NACL 0.9% 1,000 ML IV SCH (20:24)
--- NOTE | 2018-08-27 20:34 | NUR ---
ALL P.O. MEDICATION ADMINISTERED. ASSISTED TO RESTROOM LOCATED INSIDE HER ROOM TO URINATE BY MACHINE MAINTENANCE. NO COMPLAINTS DONE. CALL LIGHT WITH IN REACH. ABLE TO VERBALIZE NEEDS WELL.
[2018-08-28 01:14] VITALS: BP 89/60
[2018-08-28] MEDS: hePARIN / DEXT 5% PREMIX 250 ML IV SCH ×2 (02:02→18:39)
--- NOTE | 2018-08-28 02:16 | NUR ---
HEPARIN PTT RESULT @ 1:54 WAS 34.5 . GAVE 3.300 UNITS HEPARIN BOLUS PER PROTOCOL AND INCREASED DRIP OF 200 PIJGD=[id number] UNITS PER HOUR. SLEEPING AT THIS TIME. NO RESTLESSNESS . TELEMETRY MONITORING. ABLE TO USE CALL LIGHT FOR HELP. NO COMPLAINTS OF ANY BLOOD IN URINE OR NOSE . WILL MONITOR .
--- NOTE | 2018-08-28 04:00 | NUR ---
PT. VITAL SIGNS TAKEN AND WAKES UP EASILY. NO PAIN COMPLAINTS DONE. ON HEPARIN DRIP. IVF SITE INTACT AND NO INFILTRATION NOTED.
[2018-08-28 04:04] VITALS: BP 95/55
--- NOTE | 2018-08-28 07:22 | NUR ---
SLEEPING STILL. WOKE UP EASILY WHEN REPORT WAS ENDORSED TO AM RN. NO COMPLAINTS DONE. TELEMETRY MONITORING.
--- NOTE | 2018-08-28 07:25 | NUR ---
RECEIVED PT REPORT FROM STITCHER SET UP OPERATOR AUTOMATIC RN. PT IS SLEEPING, EASILY ROUSED, OX4. DENIES PAIN AT THIS TIME. PT IS ON O2 3L NC, NO S/S OF ACUTE DISTRESS. CARE PLANS FOR THE NIGHT DISCUSSED WITH HER. PT VERBALIZED UNDERSTANDING. BED IN LOWEST POSITION. CALL LIGHT WITH IN REACH.
[2018-08-28 08:00] VITALS: BP 114/76
[2018-08-28] MEDS: ALBUTEROL SULFATE/IPRATROPIU 3 ML SOL IH SCH ×3 (08:20→20:14)
[2018-08-28] MEDS: LISINOPRIL 5 MG TAB PO SCH (09:10)
[2018-08-28] MEDS: busPIRone 5 MG TAB PO SCH ×3 (09:11→18:00)
[2018-08-28] MEDS: PANTOPRAZOLE 40 MG INJ VIAL IVP SCH (09:12)
[2018-08-28] MEDS: LACTOBACILLUS RHAMNOSUS GG 1 EACH CAP PO SCH (09:12)
[2018-08-28] MEDS: AMOXICILLIN 500 MG CAP PO SCH ×2 (09:12→20:36)
[2018-08-28] MEDS: CARVEDILOL 3.125 MG TAB PO SCH ×2 (09:12→20:38)
[2018-08-28] MEDS: FUROSEMIDE 40 MG/4 ML VIAL IVP SCH (09:13)
[2018-08-28] MEDS: NICOTINE TRANSD SYS 14 MG/24 HR PATCH TD SCH (09:13)
[2018-08-28] MEDS: LORazepam 2 MG/ML VIAL IVP PRN ×2 (09:26→15:33)
--- NOTE | 2018-08-28 09:26 | NUR ---
PT APPEARS TO BE RESTLESS, ASKED IF PT WANTS ATIVAN FOR ANXIETY. PT STATED YES.
[2018-08-28 10:16] LABS: BASOPHILS # (AUTO) 0.4 K/uL (0.00-0.22); BASOPHILS % (AUTO) 4.2 % (0.0-2.0); EOSINOPHILS # (AUTO) 0.2 K/uL (0-0.4); EOSINOPHILS % (AUTO) 2.7 % (0.0-4.0); HEMATOCRIT 44.4 % (36-48); HEMOGLOBIN 14.4 g/dL (12.0-16.0); LYMPHOCYTES # (AUTO) 2.9 K/uL (2.5-16.5); LYMPHOCYTES % (AUTO) 34.4 % (20.5-51.1); MEAN CORPUSCULAR HEMOGLOBIN 25 pg (27-31); MEAN CORPUSCULAR HGB CONC 32 g/dL (33-37); MEAN CORPUSCULAR VOLUME 77.9 fL (80-94); MONOCYTES # (AUTO) 0.6 K/uL (0.8-1.0); MONOCYTES % (AUTO) 7.7 % (1.7-9.3); NEUTROPHILS # (AUTO) 4.2 K/uL (1.8-7.7); PLATELET COUNT (AUTO) 355 K/uL (140-450); RED BLOOD CELL COUNT(AUTO) 5.69 MIL/uL (4.20-5.40); RED CELL DISTRIBUTION WIDTH 14.4 % (11.6-13.7); WHITE BLOOD COUNT (AUTO) 8.3 K/uL (4.8-10.8)
[2018-08-28 10:26] LABS: ANION GAP 15.6 (8-16); CARBON DIOXIDE 26.1 mmol/L (21-32); CREATININE 0.9 mg/dL (0.6-1.3); POTASSIUM 3.7 mmol/L (3.5-5.1)
[2018-08-28 10:29] LABS: PHOSPHORUS 4.7 mg/dL (2.5-4.9)
--- NOTE | 2018-08-28 10:57 | NUR ---
SPOKE WITH MERI FROM [employer], . HE CAME IN TO HAVE THE DOCTOR SIGNATURE DONE AGAIN. HE SAW DR. CRUZ. I GAVE HIM A COPY OF THE ECHO AND RF MANAGER CONSULT. ALSO FAXED THE ECHO AND RF MANAGER CONSULT TO [employer] AT [phone]. I ALSO FAXED THE ECHO AND RF MANAGER CONSULT TO [facility], [phone]. REST OF INFORMATION WAS FAXED ON 08/25/18/
--- NOTE | 2018-08-28 11:20 | NUR ---
PTT 55.4, NO CHANGE TO THE HEPARIN DRIP
[2018-08-28 12:00] VITALS: BP 112/72
--- NOTE | 2018-08-28 12:10 | NUR ---
PT EATING LUNCH, STANDBY ASSISTANCE PROVIDED. PT HAS NO S/S OF DISTRESS ON 5L OXYMIZER WHICH WAS PLACED BY RT.
[2018-08-28] MEDS: HYDROcodone/APAP 7.5/325 MG 1 TAB PO PRN ×2 (12:29→20:45)
--- NOTE | 2018-08-28 12:50 | NUR ---
AMBULATED WITH PT WITHOUT O2 AROUND THE UNIT. PT RETURNED TO HER ROOM, O2 SATURATION IS 86%.
--- NOTE | 2018-08-28 14:23 | NUR ---
FAXED ORDER AND FACE SHEET AND CERTIFICATE OF MEDICAL NECESSITY FOR OXYGEN TO [facility] [phone]. PHONE [phone] LUPILLO [phone] Addendum: 08/28/18 at 1549 by Ainsley Mcclain PHONE FOR [facility] [phone]
--- NOTE | 2018-08-28 15:06 | NUR ---
CALLED [facility] AND SPOKE WITH CORRIE. SHE SAID THE OXYGEN TANK WILL BE DELIVERED WITHIN 2 HOURS. THEY WILL ARRANGE FOR CONCENTRATOR TO BE DELIVERED TO THE HOME. Addendum: 08/28/18 at 1548 by Ainsley Mcclain CM PHONE FOR [facility],
--- NOTE | 2018-08-28 15:26 | NUR ---
08/28/18 RD INITIAL ASSESSMENT COMPLETED PLEASE REFER TO NUTRITION ASSESSMENT UNDER CARE ACTIVITY FOR ESTIMATED NUTRITIONAL NEEDS. 1. CONTINUE CARDIAC DIET TOLERATED 2. EDUCATION ON HEART FAILURE DIET WAS PROVIDED 3. RD TO FOLLOW-UP 5-7 DAYS, LOW RISK MAEGAN WILDE RD
--- NOTE | 2018-08-28 15:49 | NUR ---
SPOKE WITH MERI FROM [employer]. HE IS STILL WORKING ON THE LIFE VEST. I GAVE HIM THE PHONE NUMBER TO THE FLOOR TO CALL WHEN THEY WILL BE ABLE TO BRING THE VEST.
[2018-08-28] MEDS ORDERED: LISI-424 PO (15:56)
[2018-08-28] MEDS ORDERED: CARV3.122 PO (15:56)
[2018-08-28] MEDS ORDERED: FURO-572 PO (15:56)
[2018-08-28] MEDS ORDERED: CITA20TA15 PO (15:56)
[2018-08-28] MEDS ORDERED: BUS5 PO (15:56)
[2018-08-28 16:00] VITALS: BP 103/70
--- NOTE | 2018-08-28 19:34 | NUR ---
REPORT GIVEN TO INTELLIGENCE CHIEF CHARGE NURSE. PT IS IN STABLE CONDITION.
--- NOTE | 2018-08-28 19:45 | NUR ---
RECEIVED REPORT OF PT.PT IS AWAKE,ALERT AND ORIENTED.RESP.UNLABORED W/O2.TELE IS ON AND SHOWING ST.HEPARIN DRIP INFUSING WELL.DENIED ANY PAIN AT THIS TIME.VS STABLE .WILL CONTINUE MONITORING.
[2018-08-28 20:00] VITALS: BP 90/61
[2018-08-28] MEDS: CITALOPRAM 20 MG TAB PO SCH (20:36)
[2018-08-28] MEDS: traZODone 50 MG TAB PO SCH (20:37)
[2018-08-28] MEDS: APIXABAN 2.5 MG TAB PO SCH (20:38)
[2018-08-28] MEDS: NACL 0.9% 1,000 ML IV SCH (21:00)
--- NOTE | 2018-08-28 22:39 | NUR ---
COREG DIDN'T GIVE TO PT BP=90/61.INFORMED RESIDENT.ALSO HEPARIN DRIP D/C'ED.STOPPED IT.
--- NOTE | 2018-08-28 23:55 | NUR ---
REPORT OF PT IN STABLE CONDITION GIVEN TO YEYO ARZATE.PT IS SLEEPING AT THIS TIME W/O S/S OF ANY DISTRESS.
[2018-08-29] VITALS: BP 99/63
--- NOTE | 2018-08-29 | NUR ---
RECEIVED REPORT FROM HUEY DANIELS, PT IN STABLE CONDITION, SLEEPING, V/S TAKEN, WITHIN PT BASELINE, NO DISTRESS NOTED, CALL LIGHT WITHIN REACH, WILL CONTINUE TO MONITOR.
--- NOTE | 2018-08-29 00:37 | NUR ---
ATTEMPT TO ADMINISTER IVF NS @ 20ML/HR, TO PT, PT STATED DOES NOT WANT TO BE DISTURBED AT THIS MOMENT, TO DO IT IN THE MORNING
[2018-08-29] MEDS: LORazepam 2 MG/ML VIAL IVP PRN (03:51)
--- NOTE | 2018-08-29 03:51 | NUR ---
CHECKED ON PT, V/S TAKEN, WNL, PT AMBULATED TO RESTROOM AND BACK TO BED TOLERATED WELL, THEN PT STATED FEELING RESTLESS, ATIVAN PER MD ORDER ADMINISTERED, PT TOLERATED WELL, CALL LIGHT WITHIN REACH, WILL CONTINUE TO MONITOR.
[2018-08-29 04:00] VITALS: BP 118/83
[2018-08-29] MEDS: ALBUTEROL SULFATE/IPRATROPIU 3 ML SOL IH SCH ×3 (07:21→19:38)
--- NOTE | 2018-08-29 07:28 | NUR ---
ENDORSED PT TO DAY SHIFT NURSE ANGIE RN, PT STABLE, NO DISTRESS NOTED, CALL LIGHT WITHIN REACH.
--- NOTE | 2018-08-29 07:30 | NUR ---
RECEIVED BEDSIDE REPORT FROM VINEYARD SUPERVISOR NURSE. PATIENT IS AOX4, RESTING ON BED AT THIS TIME. RESPIRATIONS EVEN AND UNLABORED, ON 5LPM OXIMIZER. DENIES PAIN AND NO SIGNS OF DISTRESS NOTED. IV ON L THUMB, INTACT AND PATENT, INFUSING PER MD ORDER. SKIN INTACT AND CLEAN. NICOTINE TRANSDERMAL PATCH ON R SHOULDER NOTED. ABLE TO AMBULATE AND CONTINENT. DISCUSSED PLAN OF CARE WITH PATIENT AND PATIENT VERBALIZED UNDERSTANDING. SAFETY MEASURES IN PLACE. BED IN LOW POSITION. TELE MONITOR ATTACHED. CALL LIGHT AT BEDSIDE.
[2018-08-29 08:00] VITALS: BP 107/72
[2018-08-29] MEDS: PANTOPRAZOLE 40 MG INJ VIAL IVP SCH (09:22)
[2018-08-29] MEDS: FUROSEMIDE 40 MG/4 ML VIAL IVP SCH (09:22)
[2018-08-29] MEDS: APIXABAN 2.5 MG TAB PO SCH ×2 (09:24→20:17)
[2018-08-29] MEDS: LISINOPRIL 5 MG TAB PO SCH (09:25)
[2018-08-29] MEDS: LACTOBACILLUS RHAMNOSUS GG 1 EACH CAP PO SCH (09:25)
[2018-08-29] MEDS: busPIRone 5 MG TAB PO SCH ×3 (09:26→17:00)
[2018-08-29] MEDS: CARVEDILOL 3.125 MG TAB PO SCH ×2 (09:26→20:08)
--- NOTE | 2018-08-29 09:30 | NUR ---
ADMINISTERED MEDS PER MD ORDER, PATIENT TOLERATED WELL. SHE REFUSED TO TAKE BUSPIRONE AND STATED " I DON'T NEED IT AND I DON'T WANT TO TAKE IT TODAY." MEDICATION EDUCATION PROVIDED. NO SIGNS OF DISTRESS NOTED. TELE MONITOR ATTACHED.
[2018-08-29 09:51] LABS: BASOPHILS # (AUTO) 0.1 K/uL (0.00-0.22); BASOPHILS % (AUTO) 1.3 % (0.0-2.0); EOSINOPHILS # (AUTO) 0.2 K/uL (0-0.4); EOSINOPHILS % (AUTO) 2.3 % (0.0-4.0); HEMATOCRIT 42.7 % (36-48); HEMOGLOBIN 13.8 g/dL (12.0-16.0); LYMPHOCYTES # (AUTO) 2.8 K/uL (2.5-16.5); LYMPHOCYTES % (AUTO) 39.2 % (20.5-51.1); MEAN CORPUSCULAR HEMOGLOBIN 25 pg (27-31); MEAN CORPUSCULAR HGB CONC 32 g/dL (33-37); MONOCYTES # (AUTO) 0.6 K/uL (0.8-1.0); MONOCYTES % (AUTO) 8.2 % (1.7-9.3); NEUTROPHILS # (AUTO) 3.5 K/uL (1.8-7.7); PLATELET COUNT (AUTO) 350 K/uL (140-450); RED BLOOD CELL COUNT(AUTO) 5.47 MIL/uL (4.20-5.40); RED CELL DISTRIBUTION WIDTH 14.6 % (11.6-13.7); WHITE BLOOD COUNT (AUTO) 7.2 K/uL (4.8-10.8)
[2018-08-29] MEDS: NICOTINE TRANSD SYS 14 MG/24 HR PATCH TD SCH (10:16)
[2018-08-29 10:25] LABS: ANION GAP 14.6 (8-16); CARBON DIOXIDE 27.1 mmol/L (21-32); CREATININE 0.9 mg/dL (0.6-1.3); POTASSIUM 4.7 mmol/L (3.5-5.1)
[2018-08-29] MEDS: HYDROcodone/APAP 7.5/325 MG 1 TAB PO PRN (10:33)
[2018-08-29 12:00] VITALS: BP 95/56
--- NOTE | 2018-08-29 12:41 | NUR ---
ABHIJEET FROM [facility] IS TALKING TO PATIENT AND MOTHER GIORGI AT BEDSIDE. NO SIGNS OF DISTRESS NOTED.
--- NOTE | 2018-08-29 13:09 | NUR ---
PATIENT REFUSED TO TAKE BUSPAR AD STATED THAT "I DON'T NEED IT. I AM FEELING FINE." PATIENT IS TALKING TO MOTHER GIOGRI AT BEDSIDE. NO SIGNS OF DISTRESS NOTED. 5LPM OXIMIZER IS ON. SAFETY MEASURES IN PLACE. TELE MONITOR ATTACHED.
--- NOTE | 2018-08-29 13:13 | NUR ---
CALLED MERI FROM [facility] AND INFORMED HIM THAT THE PATIENT'S LAST NAME IS MARU. I FAXED HIM A NEW FACE SHEET.
--- NOTE | 2018-08-29 13:20 | NUR ---
PATIENT IS RESTING ON BED AND TALKING ON HER PHONE. DENIES PAIN AND SOB. NO SIGNS OF DISTRESS NOTED. 5L/MIN OXIMIZER ON. TELE MONITOR ATTACHED.
--- NOTE | 2018-08-29 13:48 | NUR ---
CALLED [facility] AND SPOKE WITH EL. FAXED HER NEW FACE SHEET [phone] PHONE [phone]
--- NOTE | 2018-08-29 14:03 | NUR ---
PATIENT HAS O2 TANK AND CONCENTRATOR IN ROOM.
--- NOTE | 2018-08-29 15:10 | NUR ---
PATIENT IS RESTING ON BED. NO SIGNS OF DISTRESS NOTED. TELE MONITOR ATTACHED.
[2018-08-29 16:00] VITALS: BP 94/60
[2018-08-29] MEDS ORDERED: APIX5TAB PO (16:13)
--- NOTE | 2018-08-29 17:19 | NUR ---
PATIENT IS TALKING TO VISITOR MATTHIEU AT BEDSIDE. NO SIGNS OF DISTRESS NOTED. SAFETY MEASURES ARE IN PLACE. TELE MONITOR ATTACHED.
[2018-08-29] MEDS ORDERED: KETOROLAC 30 MG/ML VIAL IVP SCH (18:00)
--- NOTE | 2018-08-29 19:30 | NUR ---
RECEIVED BEDSIDE REPORT FROM HUEY ADAMS, PATIENT IN BED, CURRENTLY GETTING BREATHING TREATMENT, RT AT BEDSIDE, O2SAT 88-90%, LUNG SOUNDS CLEAR. IV IN RIGHT THUMB INFUSING NS AT 20 ML/HR, NOTED 1+ EDEMA IN LOWER EXTREMITIES. PATIENT DENIES PAIN, CALL LIGHT WITHIN REACH WILL CONTINUE TO MONITOR.
--- NOTE | 2018-08-29 19:30 | NUR ---
ENDORSED PATIENT AT BEDSIDE TO APRICOT PACKER NURSE FOR CONTINUITY OF CARE. PATIENT IS IN STABLE CONDITION.
[2018-08-29 20:00] VITALS: BP 98/58
[2018-08-29] MEDS: traZODone 50 MG TAB PO SCH (20:14)
[2018-08-29] MEDS: CITALOPRAM 20 MG TAB PO SCH (20:15)
--- NOTE | 2018-08-29 20:15 | NUR ---
PATIENT BP 98/58 HE 100 HELD COREG. PATIENT REQUESTED TO SHOWER WILL CALL DR FOR ORDERS.
[2018-08-29] MEDS: NACL 0.9% 1,000 ML IV SCH (20:18)
--- NOTE | 2018-08-29 21:30 | NUR ---
PATIENT REQUESTED TO SHOWER, ASKED DR BRUSH FOR ORDERS.
--- NOTE | 2018-08-29 23:00 | NUR ---
WALKED PATIENT TO SHOWER, STEADY GAIT, ASSISTED PATIENT BACK INTO BED.
[2018-08-30] VITALS: BP 100/60
--- NOTE | 2018-08-30 00:30 | NUR ---
PATIENT RESTING IN BED NO SIGNS OF PAIN OR DISTRESS
[2018-08-30 04:00] VITALS: BP 102/61
--- NOTE | 2018-08-30 04:00 | NUR ---
BP 102/61 HR 105 O2SAT 94 PN 5 L VIA NC
[2018-08-30] MEDS: NACL 0.9% 1,000 ML IV SCH (04:30)
[2018-08-30] MEDS: LORazepam 2 MG/ML VIAL IVP PRN (05:21)
--- NOTE | 2018-08-30 05:21 | NUR ---
PATIENT C/O SEVERE ANXIETY BP 102/61 HR 105 GAVE ATIVAN
--- NOTE | 2018-08-30 07:23 | NUR ---
RECEIVED BEDSIDE REPORT FROM CENTRAL SUPPLY TECH RN. PATIENT IN BED ASLEEP. O2SAT 92%, LUNG SOUNDS CLEAR. IV IN RIGHT THUMB INFUSING NS AT 20 ML/HR, NOTED 1+ EDEMA IN LOWER EXTREMITIES. PATIENT DENIES PAIN, CALL LIGHT WITHIN REACH WILL CONTINUE TO MONITOR.
--- NOTE | 2018-08-30 07:24 | NUR ---
ENDORSED PATIENT TO DAY SHIFT NURSE, PATIENT STABLE.
[2018-08-30 07:30] LABS: BASOPHILS # (AUTO) 0.1 K/uL (0.00-0.22); BASOPHILS % (AUTO) 0.9 % (0.0-2.0); EOSINOPHILS # (AUTO) 0.2 K/uL (0-0.4); EOSINOPHILS % (AUTO) 2.5 % (0.0-4.0); HEMATOCRIT 39.7 % (36-48); LYMPHOCYTES # (AUTO) 3.1 K/uL (2.5-16.5); LYMPHOCYTES % (AUTO) 36.2 % (20.5-51.1); MEAN CORPUSCULAR HEMOGLOBIN 25 pg (27-31); MEAN CORPUSCULAR HGB CONC 33 g/dL (33-37); MEAN CORPUSCULAR VOLUME 77.1 fL (80-94); MONOCYTES # (AUTO) 0.8 K/uL (0.8-1.0); MONOCYTES % (AUTO) 9.7 % (1.7-9.3); NEUTROPHILS # (AUTO) 4.3 K/uL (1.8-7.7); NEUTROPHILS % (AUTO) 50.7 % (42.2-75.2); PLATELET COUNT (AUTO) 332 K/uL (140-450); RED BLOOD CELL COUNT(AUTO) 5.15 MIL/uL (4.20-5.40); RED CELL DISTRIBUTION WIDTH 14.3 % (11.6-13.7); WHITE BLOOD COUNT (AUTO) 8.5 K/uL (4.8-10.8)
[2018-08-30 08:00] VITALS: BP 118/69
[2018-08-30] MEDS: ALBUTEROL SULFATE/IPRATROPIU 3 ML SOL IH SCH ×2 (08:07→13:06)
[2018-08-30 08:24] LABS: ANION GAP 16.6 (8-16); CARBON DIOXIDE 22.9 mmol/L (21-32); CREATININE 1.1 mg/dL (0.6-1.3); POTASSIUM 4.5 mmol/L (3.5-5.1)
[2018-08-30] MEDS: APIXABAN 2.5 MG TAB PO SCH (09:47)
[2018-08-30] MEDS: LACTOBACILLUS RHAMNOSUS GG 1 EACH CAP PO SCH (09:47)
[2018-08-30] MEDS: NICOTINE TRANSD SYS 14 MG/24 HR PATCH TD SCH (09:47)
[2018-08-30] MEDS: busPIRone 5 MG TAB PO SCH ×3 (09:48→16:02)
--- NOTE | 2018-08-30 09:48 | NUR ---
ADMINISTERED MORNING MEDS OT PT. PT TOLERATED THEM WELL. ALL NEEDS CURRENTLY MET. WILL CONTINUE TO ROUND FREQUENTLY ON PT.
[2018-08-30] MEDS: LISINOPRIL 5 MG TAB PO SCH (09:49)
[2018-08-30] MEDS: FUROSEMIDE 40 MG/4 ML VIAL IVP SCH (09:49)
[2018-08-30] MEDS: CARVEDILOL 3.125 MG TAB PO SCH (09:49)
[2018-08-30] MEDS: PANTOPRAZOLE 40 MG INJ VIAL IVP SCH (09:50)
--- NOTE | 2018-08-30 11:12 | NUR ---
PT REQUESTING PAIN MEDS AT THIS TIME. WILL GIVE NORCO.
[2018-08-30] MEDS: HYDROcodone/APAP 7.5/325 MG 1 TAB PO PRN ×2 (11:17→15:24)
[2018-08-30 12:00] VITALS: BP 96/62
[2018-08-30 16:00] VITALS: BP 95/61
[2018-08-30] MEDS ORDERED: HYDR10SY57 PO (16:41)
[2018-08-30] MEDS ORDERED: PNEUMOCOCCAL VACCINE 23 MCG/0.5 ML VIAL IMVAC SCH (18:20)
--- NOTE | 2018-08-30 18:25 | NUR ---
PT DISCHARGED HOME FOR SELF CARE. PT DISCHARGE TEACHING DONE AND PAPERWORK SIGNED. PRESCRIPTION HANDED TO PT. PT VERBALIZED UNDERSTANDING OF D/C TEACHING. PT TOOK ALL PERSONAL BELONGINGS HOME WITH HER. IV REMOVED WITH TIP INTACT. WRIST BAND REMOVED AND PLACED IN SHRED BIN. PT LEFT IN STABLE CONDITION. PNA VACCINE ADMINISTERED AT D/C. PT WAS TOLD THAT VACCINE GOOD FOR 5YRS. PT VERBALIZED UNDERSTANDING.
[2018-08-31] MEDS ORDERED: NICO1PAT16 TD (06:45)
[2018-08-31] MEDS ORDERED: HYDR-5122 PO (06:45)
--- NOTE | 2018-09-01 11:59 | NUR ---
RECEIVED A CALL FROM EL FROM [facility], OUT PATIENT. SHE SAID THIS PATIENT WAS REVIEWED AND THEY HAVE DECLINED TO SET UP APPOINTMENT AT THIS TIME DUE TO DRUG ABUSE. THE PATIENT NEEDS TO BE OFF DRUGS FOR AT LEAST 6MO. AND THEN THE REFERRRAL CAN BE RESUBMITTED. I INFORMED DR. CRUZ.
== END 2018-08-30 18:25 | disposition home or self-care (01) | DRG 812 ==
LOC: MED 17:22 → MTU 20:14
PROVIDERS: ADMIT General Practice; ATTEND General Practice
PROC: 3E0234Z Introduction of Serum, Toxoid and Vaccine into Muscle, Percutaneous Approach (ICD-10-PCS; principal; 2018-08-30)
DX: T43.621A Poisoning by amphetamines, accidental (unintentional), initial encounter (principal); J96.21 Acute and chronic respiratory failure with hypoxia; R65.11 Systemic inflammatory response syndrome (SIRS) of non-infectious origin with acute organ dysfunction; T40.1X1A Poisoning by heroin, accidental (unintentional), initial encounter; G92 Toxic encephalopathy; I50.43 Acute on chronic combined systolic (congestive) and diastolic (congestive) heart failure; I16.0 Hypertensive urgency; R00.0 Tachycardia, unspecified; I11.0 Hypertensive heart disease with heart failure; E87.1 Hypo-osmolality and hyponatremia; E11.65 Type 2 diabetes mellitus with hyperglycemia; I07.1 Rheumatic tricuspid insufficiency; I27.21 Secondary pulmonary arterial hypertension; I42.7 Cardiomyopathy due to drug and external agent; N39.0 Urinary tract infection, site not specified; E78.5 Hyperlipidemia, unspecified; F15.10 Other stimulant abuse, uncomplicated; E80.6 Other disorders of bilirubin metabolism; R45.850 Homicidal ideations; J06.9 Acute upper respiratory infection, unspecified; J44.9 Chronic obstructive pulmonary disease, unspecified; F17.210 Nicotine dependence, cigarettes, uncomplicated; K21.9 Gastro-esophageal reflux disease without esophagitis; K05.10 Chronic gingivitis, plaque induced; F32.9 Major depressive disorder, single episode, unspecified; F41.9 Anxiety disorder, unspecified; G47.00 Insomnia, unspecified; Y92.89 Other specified places as the place of occurrence of the external cause; Z91.19 Patient's noncompliance with other medical treatment and regimen; Z23 Encounter for immunization; Z79.899 Other long term (current) drug therapy
CPT/HCPCS: 36415; 36600; 71045; 80048; 80053; 80305; 81001; 81025; 82140; 82803; 83036; 83605; 83690; 83735; 83880; 84100; 84439; 84443; 84484; 85025; 85379; 85610; 85730; 87040; 87081; 87086; 90732; 93005; 93970; 94640; 97161-GP; 99285; C9113; J1644; J1885; J1940; J2060; J2405; J7030; J7620; Q0092